=== PATIENT | female | born 2000 | race Caucasian/White ===

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

== ENCOUNTER 2018-09-12 09:52 | Emergency (ER) | payer BC, SELFPAY | END 2018-09-12 10:32 | disposition home or self-care (01) | LOC: MADERS 09:52 | DX: A60.04 Herpesviral vulvovaginitis (principal); B37.3 Candidiasis of vulva and vagina; F17.210 Nicotine dependence, cigarettes, uncomplicated; F98.8 Other specified behavioral and emotional disorders with onset usually occurring in childhood and adolescence | CPT/HCPCS: 99283 ==